=== PATIENT | female | born 1975 | race Caucasian/White ===

== ENCOUNTER 2019-08-29 06:31 | Day surgery (SDC) | payer BC ==
[2019-08-19 11:43] VITALS: BMI 20.3
[2019-08-29] MEDS ORDERED: ceFAZolin SODIUM 1 GM VIAL ONE ×2 (07:09→07:15)
[2019-08-29] MEDS ORDERED: LIDOCAINE 1%/EPI 1:100000 (20 ML MULTI DOSE VIAL) ONE (07:10)
[2019-08-29] MEDS ORDERED: GENTAMICIN SO4 80 MG/2 ML VIAL ONE (07:10)
[2019-08-29] MEDS ORDERED: LIDOCAINE HCL 1%, 10 MG/ML (20ML VIAL) ONE (07:10)
[2019-08-29] MEDS ORDERED: BUPIVACAINE HCL/PF 2.5 MG/ML - 30 ML VIAL IJ ONE (07:10)
[2019-08-29] MEDS ORDERED: PROPOFOL 20 ML ONE ×2 (07:12)
[2019-08-29] MEDS ORDERED: MIDAZOLAM HCL 2 MG/2 ML SINGLE DOSE VIAL ONE (07:12)
[2019-08-29] MEDS ORDERED: ONDANSETRON 4 MG/2 ML VIAL ONE (07:13)
[2019-08-29] MEDS ORDERED: LIDOCAINE HCL 2% JELLY (5 ML/TUBE) ONE (07:13)
[2019-08-29] MEDS ORDERED: DEXAMETHASONE SOD PHOSPHATE 4 MG/1 ML VIAL ONE (07:13)
[2019-08-29] MEDS ORDERED: LIDOCAINE HCL/PF 2% SDV 5ML VIAL ONE (07:13)
[2019-08-29] MEDS ORDERED: KETOROLAC TROMETHAMINE 30 MG/1 ML VIAL ONE (07:13)
[2019-08-29] MEDS ORDERED: ePHEDrine SULFATE 50 MG/1 ML AMPULE ONE (08:24)
--- NOTE | 2019-08-29 09:21 | OP ---
Operative Note - Note: Operative Date: 08/29/19 Pre-Operative Diagnosis: Chest wall defect s/p mastectomy and reconstruction Operation: Bilateral breast implant exchange, capsulectomy Post-Operative Diagnosis: Same as Pre-op Surgeon: Dago Pavon Document Imaging Manager: Nash Faye Anesthesiologist/HIM MANAGER: Madhuri Banks Anesthesia: General Estimated Blood Loss (mls): 5 Operative Report Dictated: Yes
[2019-08-29 09:43] VITALS: TEMP 97.5
[2019-08-29] MEDS ORDERED: ONDANSETRON 4 MG/2 ML VIAL IVPUSH PRN (11:05)
[2019-08-29] MEDS ORDERED: oxyCODONE HCL 5 MG TABLET PO PRN (11:05)
[2019-08-29] MEDS ORDERED: LACTATED RINGERS SOLUTION 1,000 ML IV SCH (11:15)
[2019-08-29 11:22] VITALS: BP 114/66; PULSE 76
--- NOTE | 2019-08-29 19:54 | OP ---
DATE OF OPERATION: 08/29/2019 SURGEON: Ruth Pavon MD DEVELOPMENT CONSULTANT SURGEON: JOSHUA Reveles PREOPERATIVE DIAGNOSES: 1. Bilateral acquired chest wall deformity status post bilateral mastectomy. 2. Malposition and complication of breast implant. 3. Personal history of genetic carcinoma. POSTOPERATIVE DIAGNOSES: 1. Bilateral acquired chest wall deformity status post bilateral mastectomy. 2. Malposition and complication of breast implant. 3. Personal history of genetic carcinoma. OPERATIVE PROCEDURES: 1. Right breast capsulectomy, removal and replacement of right breast implant. 2. Left breast capsulectomy, removal and replacement of left breast implant. 3. Capsulorraphy, right breast. 4. Capsulorraphy, left breast. OPERATIVE INDICATION: Patient is a young woman who underwent bilateral mastectomy approximately 6 years ago and now presents with acquired deformity of the chest wall with asymmetry of the reconstructed breast and malposition of the implants. The risks and benefits of surgical versus nonsurgical alternatives as well as material complications of implant exchange were discussed with the patient including capsulectomy and capsulorraphy for malposition and multiple questions regarding the procedure. These were all answered on multiple occasions preoperatively including today in the holding area where she was marked in the standing position for outline of the procedure with her sister in attendance. OPERATIVE PROCEDURE IN DETAIL: The patient was taken to the operating room, and after induction of general anesthesia in supine position, both arms were extended and padded. Venodyne boots were placed. The entire chest wall was prepped with ChloraPrep solution over its entire extent in the usual fashion for breast surgery. At this point, sterile drapes were placed in the usual fashion, and time-out was called. The previous mastectomy scars were seen on the inframammary fold on both sides. These were injected with 1% local lidocaine anesthesia with 1:100,000 epinephrine and 0.25% Marcaine. After allowing topical anesthesia and hemostasis, an incision was made down to the right breast mastectomy scar down through the skin to the subcutaneous tissue, down to the underlying capsule. The capsule was then opened using the electrocautery along the course of the incision. The capsule was then opened, and the implant was removed and sent for pathologic diagnosis. No fluid was seen around the implant in the pocket itself, although the nature expectation was seen without evidence of rupture. At this point, the capsule was examined on the right side. Lower portions of the capsule were removed for history of these textured devices. The medial portion of the breast was also examined. There was a small, discolored area on the medial portion of the capsule, so this portion of capsule was also removed and sent for pathologic diagnosis to rule out ALCL. At this point, copious irrigation of the wound was performed with both saline, triple antibiotic solution, and Betadine. While this was soaking, attention was turned to the opposite breast where the exact same procedure was carried out symmetrically on the opposite side. The implant was also removed and seemed to be intact with no evidence of capsular lesions. Capsulectomy was performed and then copious irrigation in a similar fashion was carried out. At this point, an implant was chosen for the right breast. A 505-mL High Profile Smooth Round silicone gel-style 107 cohesive gel implant was chosen for the right breast. However, before doing that, capsulorraphy was performed tightening the irregularities in the capsule itself with the bipolar electrocautery shrinking the capsule in order to accommodate the new implant and prevent malformation. This was carried out over the capsule itself but more in the medial portion of the breast on both breasts symmetrically. Once this was accomplished, the implant was placed into the pocket using the Maria Funnel with a no-touch technique. Again, Betadine was prepped over the skin and subcutaneous tissue before placing this, and the implant was rinsed with both triple antibiotic solution and Betadine. Once this was in place, the wound was closed and the capsule closed by advancement flaps using 3-0 Vicryl sutures. The capsule was run with a suture from medial to lateral closing the pocket in a watertight fashion. The 2nd layer was used with 3-0 PDS suture in a deep dermal layer and then a subcuticular suture using 3-0 Biosyn suture was placed to the skin. The exact same closure and the exact same implant was used on the left side. Good symmetry was seen in both the lying and sitting positions. The wounds were dressed with Dermabond, Steri-Strips, and a compressive dressing. She was awakened, extubated, and transferred to the recovery room in a Surgi-Bra and tolerated procedure well. RUTH PAVON M.D. CELESTE/[id number]
--- NOTE | 2019-09-03 14:32 | PATH ---
Surgical Pathology Report Patient Name: JUSTINO [facility]ACH [facility]. Rec. #: [id number] /Age/Gender: 1975 (Age: 44) / F Account: [id number] Location: [facility] AMBULATORY Taken: 08/29/2019 Received: 08/29/2019 Reported: 09/03/2019 Physicians: Dago Pavon Specimen(s) Received A: RIGHT BREAST IMPLANT B: RIGHT BREAST CAPSULE C: RIGHT BREAST MEDIAL CAPSULE LESION D: LEFT BREAST IMPLANT E: LEFT BREAST CAPSULE Clinical History History of textured implants, no fluid in pocket, rule out ALCL Final Diagnosis A. IMPLANT, RIGHT BREAST, REMOVAL: IMPLANT, DESCRIBED (GROSS EXAMINATION ONLY). B. CAPSULE, RIGHT BREAST, CAPSULECTOMY: FIBROUS CAPSULE. (SEE NOTE) C. CAPSULE, RIGHT BREAST MEDIAL, LESION, EXCISION: FIBROUS CAPSULE SHOWING SILICONE GRANULOMAS. (SEE NOTE) D. IMPLANT, LEFT BREAST, REMOVAL: IMPLANT, DESCRIBED (GROSS EXAMINATION ONLY). E. CAPSULE, LEFT BREAST, CAPSULECTOMY: FIBROUS CAPSULE. (SEE NOTE). Note: No evidence of malignancy/anaplastic large cell lymphoma (ALCL) in this material. Electronically Signed Yuli Ha M.D. Gross Description A. Received fresh labeled "right breast implant," is a 13.5 cm in diameter x 3.5 cm in depth bowie, rubbery, intact breast implant. No soft tissue is present. No sections are submitted, gross only. B. Received in formalin labeled "right breast capsule," is a 4.5 x 0.7 x 0.2 cm bowie portion of fibrous tissue, consistent with a portion of fibrous capsule. No lesions are identified. The specimen is trisected and entirely submitted in one cassette. C. Received in formalin labeled "right breast medial capsule," is a 0.8 x 0.4 x 0.1 cm bowie portion of fibrous tissue, consistent with a portion of fibrous capsule. No discrete lesion is identified. The specimen is submitted in toto in one cassette. D. Received fresh labeled "left breast implant," is a 13.5 cm in diameter x 3.5 cm in depth a bowie, rubbery, intact breast implant. No soft tissue is present. No sections are submitted, gross only. E. Received in formalin labeled "left breast capsule," is a 3.8 x 0.7 x 0.2 cm bowie portion of fibrous tissue, consistent with a portion of fibrous capsule. No lesions are identified. The specimen is trisected and entirely submitted in one cassette. 08/30/2019 [facility]08/30/2019
--- NOTE | 2019-09-05 15:38 | SURG ---
Surgery Lease Out Man Note Lease Out Man: Nash Faye PA-C Date of Service: 08/29/19 Diagnosis: 1. Bilateral chest wall deformity s/p mastectomy 2. Malposition and complication of breast implant 3. Personal history of genetic carcinoma Procedure: 1. Right capsulectomy, removal and replacement of right breast implant 2. Left capsulectomy, removal and replacement of right breast implant 3. Capsulorraphy, Left 4. Capsulorraphy, Right I was present for the entirety of the operative procedure. For further detail, please refer to operative report. Visit type - Case Type Case Type: Scheduled - Emergency Emergency Visit: No - New patient This patient is new to me today: Yes Date on this admission: 09/05/19 - Critical Care Critical Care patient: No
== END 2019-08-29 11:00 | disposition home or self-care (01) ==
LOC: FASU 06:31
PROVIDERS: ATTEND Plastic Surgery
PROC: 0HWT0JZ Revision of Synthetic Substitute in Right Breast, Open Approach (ICD-10-PCS; 2019-08-29)
PROC: 0HWU0JZ Revision of Synthetic Substitute in Left Breast, Open Approach (ICD-10-PCS; principal; 2019-08-29 08:22)
DX: M95.4 Acquired deformity of chest and rib (principal); Z90.13 Acquired absence of bilateral breasts and nipples; Z85.3 Personal history of malignant neoplasm of breast; T85.42XA Displacement of breast prosthesis and implant, initial encounter; T85.41XA Breakdown (mechanical) of breast prosthesis and implant, initial encounter; Y83.8 Other surgical procedures as the cause of abnormal reaction of the patient, or of later complication, without mention of misadventure at the time of the procedure; Y92.89 Other specified places as the place of occurrence of the external cause
CPT/HCPCS: 81025; 88300-TC; 88304-TC; 94760